=== PATIENT | male | born 2005 | race Caucasian/White ===

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

== ENCOUNTER 2024-11-26 20:41 | Emergency (ER) | payer OTHER ==
[~2024-11-26] VITALS: Ht 180.3 cm; Wt 122.6 kg
[2024-11-27 00:29] LABS: BASO # 0.0 10^3/uL (0.0-0.2); BASO % 0.4 % (0.0-1.0); EOS # 0.3 10^3/uL (0.0-0.5); EOS % 3.8 % (0.0-3.0); LYMPH # 1.7 10^3/uL (1.5-5.0); LYMPH % 21.0 % (24.0-44.0); MONO # 0.5 10^3/uL (0.0-0.8); MONO % 5.7 % (2.0-8.0); NEUTROPHILS # 5.4 10^3/uL (1.5-8.5); NEUTROPHILS % 68.8 % (36.0-66.0); PLATELET COUNT, AUTOMATED 281 10^3/uL (150-450)
[2024-11-27 00:38] LABS: ALT/SGPT 38 U/L (7.0-40); AST/SGOT 28 U/L (<34); CALCIUM LEVEL 10.1 MG/DL (8.5-10.1); CARBON DIOXIDE LEVEL 25 MMOL/L (20-31); CHLORIDE LEVEL 104 MMOL/L (98-107); CREATININE FOR GFR 0.99 MG/DL (0.70-1.30); GLOMERULAR FILTRATION RATE > 90.0 (>60); POTASSIUM SERUM 3.9 MMOL/L (3.5-5.1); SODIUM LEVEL 136 MMOL/L (136-145)
[2024-11-27 01:04] LABS: INR 0.86
[2024-11-27 01:40] VITALS: BP 112/81; TEMP 98; O2SAT 97
== END 2024-11-27 01:41 | disposition home or self-care (01) ==
LOC: M ED 20:41
DX: R20.2 Paresthesia of skin (principal); S56.911A Strain of unspecified muscles, fascia and tendons at forearm level, right arm, initial encounter; Y92.9 Unspecified place or not applicable; Y93.9 Activity, unspecified; Y99.9 Unspecified external cause status; F90.9 Attention-deficit hyperactivity disorder, unspecified type